=== PATIENT | female | born 2000 | race Caucasian/White ===

== ENCOUNTER 2020-01-06 09:48 | Outpatient (CLI) | payer MEDICAID, SELFPAY ==
--- NOTE | 2020-01-06 | US_ITS ---
WS: [id number] ULTRASOUND OB COMPLETE TECHNIQUE: Complete ultrasound. CLINICAL INFORMATION: SUPERVISION OF NORMAL FIRST PREGANCY IN FIRST TRIMESTER COMPARISON: None. FINDINGS: Cervix measures 3.7 cm Single interuterine gestation is identified with breech presentation. Placenta is anterior. Placenta grade 0. Normal amniotic fluid volume. cardiac activity: 143 BPM. AGA: 20 weeks 2 days MARIBEL by ultrasound: May 23, 2020 Estimated weight: 12 ounces BDP: 4.7 cm = 20w1d HC: 17.5 cm = 20w0d AC: 15.4 cm = 20w4d FEMUR LENGTH: 3.2 cm = 20w1d Anatomic survey: Anatomic survey is normal. Normal stomach. Kidneys and bladder are normal. Normal 3 vessel cord. Norm al 3 vessel cord insertion. Normal 4 chamber heart. Normal spine. Intracranial contents are normal. N ormal posterior fossa and cisterna magna. US/US OB >= 14 weeks fetus [id number] IMPRESSION: 1. Single intrauterine with visualized cardiac activity. AGA 20 week s 2 days with MARIBEL May 23, 2020. 2. Placenta is anterior. No evidence of abruption or previa. 3. anatomic survey is normal. 4. Normal amniotic fluid volume.
== END 2020-01-06 09:49 | disposition home or self-care (01) ==
LOC: RADOUTREAD 14:35
PROVIDERS: Visit Provider Family Medicine
DX: Z76.89 Persons encountering health services in other specified circumstances (principal)

== ENCOUNTER 2020-05-31 01:30 | Inpatient (IN) | payer MEDICAID, SELFPAY ==
[2020-05-31] VITALS (66 sets, daily range): BP systolic 0–159; BP diastolic 0–93; PULSE 54–105; RESP 16–20; TEMP 36.4–37.1; O2SAT 96–98
[2020-05-31] MEDS: lactated ringers 1,000 ML 125 ML IV (02:41)
[2020-05-31] MEDS: ampicillin 2,000 MG in sodium chloride 0.9% (plus) 50 ML 100 MG IV (02:42)
[2020-05-31 03:21] LABS: Basophils # 0.1 10^3/uL (0.0-0.1); Basophils % 0.4 %; Eosinophils # 0.2 10^3/uL (0.0-0.8); Eosinophils % 0.9 %; Hematocrit 37.9 % (37.0-47.0); Hemoglobin 12.5 g/dL (11.5-15.3); Lymphocytes # 3.2 10^3/uL (1.5-6.5); Lymphocytes % 20.2 %; Mean Corpuscular Hemoglobin 29.1 pg (28.0-34.0); Mean Corpuscular Volume 88.3 fL (81-99); Monocytes % 6.1 %; Neutrophils # 11.52 10^3/uL (1.8-8.0); Nucleated Red Blood Cells % 0 %; Platelet Count 229 10^3/cmm (130-400); Red Blood Count 4.29 10^6/uL (4.1-5.3); Red Cell Distribution Width 12.9 % (12.1-15.1)
[2020-05-31 03:31] LABS: Amphetamines Screen Urine Negative (Negative); Barbiturates Screen Urine Negative (Negative); Benzodiazepines Screen Urine Negative (Negative); Cocaine Screen Urine Negative (Negative); Opiate Screen Urine Negative (Negative); PCP Screen Urine Negative (Negative); THC Screen Urine Negative (Negative)
[2020-05-31] MEDS: ampicillin 1,000 MG in sodium chloride 0.9% (plus) 50 ML 100 MG IV ×2 (06:57→09:57)
[2020-05-31] MEDS: fentaNYL 50 mcg/mL INJ 2mL IV ×3 (07:38→11:26)
--- NOTE | 2020-05-31 10:09 | PC.NURSE ---
This nurse offered to assist patient into a different position to help progress labor and pain management. Patient declined and stated she did position changes this morning and she is tired. This nurse reiterated to hit call light if she thinks her water breaks or feeling the urge to push. Patient verbalized understanding. Denied needing anything.
[2020-05-31] MEDS: ondansetron 2 mg/ML SDV 2 mL 4 MG IVP (11:36)
--- NOTE | 2020-05-31 14:58 | P.PCNOB_ITS ---
Delivery Note: Date of delivery: May 31, 2020 Pre-Delivery Course: Mother had routine care at [facility]. She was known to be GBS positive and received several doses of ampicillin prior to delivery. There were no complications during the . Mother did test positive for THC during the . Delivery: This is a 19-year-old at 41 weeks gestation who presented to labor and delivery in active labor. Her labor progressed well on its own. She underwent artificial rupture of membranes with thin meconium when she was about 7 cm dilated. Mother was having some difficulty pushing past her tight tissues and heart tones were in the 80s so decision was made to assist with vacuum delivery. The vacuum popped off x1 and was not replaced. Midline episiotomy was performed. Shortly thereafter she had a vaginal delivery of a viable male infant weight 8 pounds 3 ounces, 3715 g over midline episiotomy. Placenta was delivered grossly intact and normal to inspection. Second-degree midline episiotomy was repaired using 3-0 chromic in a running fashion. Mother was doing well after delivery. Estimated blood loss 350 mL. was requiring a little bit of oxygen support. His Apgars were 7 and 8 and he had tachypnea and grunting. ROM was approximately 2 hours prior to delivery A&P Assessment and plan (1) Vacuum-assisted vaginal delivery: Routine care Status: Acute (2) 41 weeks gestation of : Status: Acute Coding Level of Care Code Acute Belt And Link Assembly Supervisor for Chg Fwd Diagnoses Vacuum-assisted vaginal delivery Z37.9 41 weeks gestation of Z3A.41
[2020-05-31] MEDS: oxytocin 30 UNIT/500 ML BAG 600 UNIT IV (15:01)
[2020-05-31] MEDS: lidocaine 2% INJ 20 mL INJECTION (15:02)
[2020-05-31] MEDS: benzocaine-menthol 78 gm Canister 1 SPRAY TOPICAL (17:10)
[2020-05-31] MEDS: lanolin oint 7 gm 1 APPLIC TOPICAL (17:11)
[2020-06-01 03:29] LABS: Hematocrit 31.3 % (37.0-47.0); Hemoglobin 10.1 g/dL (11.5-15.3); Mean Corpuscular HGB Conc 32.3 g/dL (30.0-36.0); Mean Corpuscular Hemoglobin 29.3 pg (28.0-34.0); Mean Corpuscular Volume 90.7 fL (81-99); Mean Platelet Volume 11.6 fL (7.4-10.4); Platelet Count 214 10^3/cmm (130-400); Red Blood Count 3.45 10^6/uL (4.1-5.3); Red Cell Distribution Width 12.8 % (12.1-15.1); White Blood Count 16.7 10^3/uL (4.5-13.0)
[2020-06-01] MEDS: prenatal vitamin Capsule 1 CAP PO (08:39)
[2020-06-01] MEDS: docusate sodium 100 mg Capsule PO ×2 (08:39→17:50)
[2020-06-01 10:28] VITALS: BP 109/66; PULSE 73; RESP 16; TEMP 36.8; O2SAT 98
--- NOTE | 2020-06-01 12:31 | P.PN_ITS ---
Subjective Subjective: Interval history: Mother is doing well. She states her bleeding is not bad. She has no concerns or complaints Vitals/I&O/Wt Last Vital Signs Temp 98.2 F 06/01/20 10:28 Pulse 73 06/01/20 10:28 Resp 16 06/01/20 10:28 BP 109/66 06/01/20 10:28 Pulse Ox 98 06/01/20 10:28 05/31/20 06/01/20 06/01/20 22:59 06:59 14:59 Intake Total 500 / 1483.333 Balance 500 / 1483.333 Weight last 48 hrs Weight 175 lb Physical Exam Const: COMMON NORMALS: no acute distress GENERAL APPEARANCE: cooperative and comfortable HENMT: COMMON NORMALS: normocephalic and atraumatic HEAD & SCALP: normoc ephalic and atraumatic Eye: COMMON NORMALS: Equal, round and reactive pupils present and EOMs intact bilaterally PUPIL: Yes Equal, round and reactive pupils present Chest: COMMONS NORMALS: normal inspection of the chest Resp: COMMON NORMALS: normal respiratory effort and No retractions Cardio: COMMON NORMALS: regular rate and regular rhythm RATE: regular rate RHYTHM: regular rhythm GI: COMMON NORMALS: Soft to palpation (Fundus firm U- 2) PALPATION: Yes Soft to palpation (Fundus firm U- 2), No Tenderness to palpation present (GI) and No Guarding due to palpation present (GI) Extremity: GENERAL: No calf tenderness and No edema Data : 06/01/20 03:05 A&P Assessment and plan (1) Vacuum-assisted vaginal delivery: Continue routine care and work on breast-feeding Status: Acute Attestations Medical Necessity Statement*: Routine care Coding Level of Care Code Acute Food Science Technician for Chg Fwd Diagnoses Vacuum-assisted vaginal delivery Z37.9
[2020-06-01 16:52] VITALS: BP 115/69; PULSE 64; RESP 16; TEMP 36.8; O2SAT 97
[2020-06-01 21:30] VITALS: BP 112/65; PULSE 75; RESP 16; O2SAT 98
[2020-06-02 04:00] VITALS: BP 111/65; PULSE 73; RESP 16
[2020-06-02] MEDS: docusate sodium 100 mg Capsule PO (09:05)
[2020-06-02] MEDS: prenatal vitamin Capsule 1 CAP PO (09:05)
[2020-06-02 10:03] VITALS: BP 113/65; PULSE 80; RESP 16; TEMP 36.8
--- NOTE | 2020-06-02 13:00 | P.DS_ITS ---
Discharge Providers STATISTICAL CLERK ADVERTISING Date of Admission: 05/31/20 01:30 Date of Discharge: 06/02/20 Attending Provider at Admission: Vickie Marquis MD Attending Provider at Discharge: Vickie Marquis MD Diagnoses at Discharge Discharge Diagnosis (1) Vacuum-assisted vaginal delivery: Status: Acute Reason for Visit Reason for Visit: abd pain Hospital Course Discharge Summary: This is a 19-year-old G1 now P1 who presented to labor and delivery in active labor. She had a vaginal delivery of a viable male . After delivery she did well. She had minimal vaginal bleeding, was ambulating, tolerating a regular diet, and requesting discharge home on day #2. Information Peripartum Data: Delivery Method: Vaginal Physical Exam Const: COMMON NORMALS: no acute distress, patient oriented x3 and alert GENERAL APPEARANCE: cooperative and comfortable HENMT: COMMON NORMALS: normocephalic and atraumatic HEAD & SCALP: normocephalic and atraumatic Chest: COMMONS NORMALS: normal inspection of the chest Resp: COMMON NORMALS: normal respiratory effort and No retractions Cardio: COMMON NORMALS: regular rate and regular rhythm RATE: regular rate RHYTHM: regular rhythm GI: COMMON NORMALS: Soft to palpation (Fundus firm U- 3) PALPATION: Yes Soft to palpation (Fundus firm U- 3), No Tenderness to palpation present (GI), No Guarding due to palpation present (GI) and No Rigid due to palpation Extremity: GENERAL: No calf tenderness and No edema Neuro: COMMON NORMALS: patient oriented x3 SENSORIUM/ORIENTATION: Yes alert Discharge Data Vitals: Last Vital Signs Temp 98.2 F 06/02/20 10:03 Pulse 80 06/02/20 10:03 Resp 16 06/02/20 10:03 BP 113/65 06/02/20 10:03 Pulse Ox 98 06/01/20 21:30 Discharge Plan Discharge Patient Disposition: Home Condition: Stable Prescriptions: No Action No Known Home Medications RF: 0 Discharge Orders: Discharge Order (Routine); Ordered 06/02/20 Ordered By: Vickie Marquis Referrals: Vickie Marquis MD [Physician] - 06/29/20 1:15 pm (* Your 4 week post appointment is with Dr. Marquis on June 29, 2020 at 1:15pm. ) Discharge Diet: Usual diet Discharge Activity: Limit activity as instructed Patient Instructions: OB Discharge Report, OB Food/Drug Interaction Guide, OB Home Care, OB Proud Parent Packet, OB Vaginal Deliveries Discharge Attestations STATISTICAL CLERK ADVERTISING Time Spent in Discharge Care*: less than 30 min Coding Level of Care Code Acute Conditioning Coach for Chg Fwd Diagnoses Vacuum-assisted vaginal delivery Z37.9
[2020-06-02 13:17] VITALS: BP 126/75; PULSE 87; RESP 18
[2020-06-02 13:29] VITALS: TEMP 36.9
== END 2020-06-02 13:57 | disposition home or self-care (01) | DRG 807 ==
LOC: OPOB 09:06 → OBGYN 09:06
PROVIDERS: Admitting Provider Family Medicine; Visit Provider Family Medicine
DX: O99.824 Streptococcus B carrier state complicating childbirth (principal); Z37.0 Single live birth; Z3A.41 41 weeks gestation of pregnancy; O99.324 Drug use complicating childbirth; F12.10 Cannabis abuse, uncomplicated; O70.1 Second degree perineal laceration during delivery
CPT/HCPCS: 12345; 36415; 59409; 80306; 85025; 85027; 96374; 96375; 98960; 99211; J0290; J2405; J3010

== ENCOUNTER → 2020-09-21 14:47 | Outpatient (BNVA) | payer MEDICAID, SELFPAY | PROVIDERS: Visit Provider Obstetrics & Gynecology | DX: Z30.9 Encounter for contraceptive management, unspecified (principal) | CPT/HCPCS: 81025 ==

== ENCOUNTER 2022-06-14 01:35 | Inpatient (IN) | payer MEDICAID, SELFPAY ==
[2022-06-13 18:58] VITALS: BMI 28.6
[2022-06-13 19:24] VITALS: BP 126/76; PULSE 95; TEMP 36.3
[2022-06-13] MEDS: miSOPROStol 100 mcg tablet 25 MCG VAGINAL (20:31)
[2022-06-13 20:32] LABS: Basophils % 0.2 %; Eosinophils # 0.1 10^3/uL (0.0-0.8); Eosinophils % 0.8 %; Hematocrit 34.5 % (37.0-47.0); Hemoglobin 11.2 g/dL (11.5-15.3); Lymphocytes # 3.3 10^3/uL (0.8-4.8); Lymphocytes % 22.5 %; Mean Corpuscular HGB Conc 32.5 g/dL (30.0-36.0); Mean Corpuscular Hemoglobin 28.1 pg (28.0-34.0); Mean Corpuscular Volume 86.5 fl (81-99); Mean Platelet Volume 11.8 fL (7.4-10.4); Monocytes # 0.7 10^3/uL (0.2-0.9); Monocytes % 4.9 %; Neutrophils # 10.25 10^3/uL (1.8-7.7); Neutrophils % 70.8 %; Nucleated Red Blood Cells % 0 %; Platelet Count 233 10^3/cmm (130-400); Red Blood Count 3.99 10^6/uL (4.1-5.3); Red Cell Distribution Width 14.9 % (12.1-15.1); White Blood Count 14.5 10^3/uL (4.0-10.0)
[2022-06-13 20:55] VITALS: BP 127/68; PULSE 93
[2022-06-13 21:10] VITALS: BP 129/71; PULSE 78
[2022-06-13 22:09] VITALS: BP 124/72; PULSE 81
[2022-06-13 23:14] VITALS: BP 125/79; PULSE 67
[2022-06-14] VITALS (30 sets, daily range): BP systolic 104–165; BP diastolic 56–88; PULSE 50–109; RESP 15–18; TEMP 36.4–36.8; O2SAT 99–100
[2022-06-14] MEDS: miSOPROStol 100 mcg tablet 25 MCG VAGINAL (00:40)
[2022-06-14 00:50] LABS: Amphetamines Screen Urine Negative (Negative); Barbiturates Screen Urine Negative (Negative); Benzodiazepines Screen Urine Negative (Negative); Cocaine Screen Urine Negative (Negative); Opiate Screen Urine Negative (Negative); PCP Screen Urine Negative (Negative); THC Screen Urine Positive (Negative)
[2022-06-14] MEDS: ondansetron 2 mg/ML SDV 2 mL 4 MG IVP (06:06)
[2022-06-14] MEDS: fentaNYL 50 mcg/mL INJ 2mL IVP ×2 (06:08→09:18)
[2022-06-14] MEDS: oxytocin 30 UNIT/500 ML BAG 600 UNIT IV (09:06)
--- NOTE | 2022-06-14 09:17 | PM.OPHPUD ---
Labor & Delivery H&P Update Date of Procedure: June 14, 2022 Date H&P Performed: 06/13/22 Admission Diagnosis: 1-year-old 2 para 1-0-0-1 at 40 weeks and 4 days presenting for induction Planned procedure: Spontaneous vaginal delivery Other information: The patient is a 21-year-old female whose is been remarkable for having inadequate care for the last month, and being positive for marijuana. The remainder of her labs within normal limits. Her blood type is a positive. She also failed a glucose screen but we had a hard time getting her in for further evaluation. Related Problem List Diagnoses (1) 41 weeks gestation of : A&P Assessment and plan (1) 41 weeks gestation of : I anticipate routine labor and delivery. We will initiate Cytotec and continue with further induction measures as needed. Status: Acute
--- NOTE | 2022-06-14 09:21 | PM.DELIVERY ---
Delivery Note: Date of delivery: June 14, 2022 Pre-delivery diagnoses: 21-year-old 2 para 1-0-0-1 female at 40 weeks and 4 days Post-delivery diagnoses: Status post vaginal delivery Procedure: 1. Spontaneous vaginal delivery 2. Manual extraction of retained placenta Delivering Physician: García Hayes Estimated blood loss (mL): 300 Delivery: DELIVERY: The patient progressed to complete without difficulty. She delivered a male with a weight of 6 pounds 7 ounces with Apgars of 8, 9. The baby was delivered from the CATE position and placed on the mother's abdomen. The cord was then clamped and cut. There was no nuchal cord. There was no meconium. The umbilical cord detached from the placenta. The patient continued to have moderate bleeding, so I manually extracted at the placenta intact. I manually explored the uterus after extraction of the placenta and found no residual placental material. The perineum and vaginal vault were carefully examined. No lacerations were noted. Both the mother and the baby were in stable condition. Post-Delivery Status: Good History History History 1 Term 1 0 Miscarriages/Ectopic 0 Living Children 1 A&P Assessment and plan (1) 40 weeks gestation of : Status: Acute (2) Spontaneous vaginal delivery: I anticipate routine care. Because of the manual removal of her placenta, we will monitor her for increased bleeding. I carefully examined the placenta afterwards and found no sign of any missing portions of the placenta, so I am hopeful that there will to be no problems. Status: Acute Coding Level of Care Code Acute Institution Librarian for Chg Fwd Diagnoses 40 weeks gestation of Z3A.40 Spontaneous vaginal delivery O80
[2022-06-14] MEDS: ibuprofen 800 mg tablet PO ×2 (16:07→21:08)
[2022-06-14] MEDS: docusate sodium 100 mg Capsule PO (21:08)
[2022-06-15 00:08] LABS: Hematocrit 31.1 % (37.0-47.0); Hemoglobin 10.2 g/dL (11.5-15.3); Mean Corpuscular HGB Conc 32.8 g/dL (30.0-36.0); Mean Corpuscular Volume 85.4 fl (81-99); Mean Platelet Volume 11.8 fL (7.4-10.4); Platelet Count 225 10^3/cmm (130-400); Red Blood Count 3.64 10^6/uL (4.1-5.3); Red Cell Distribution Width 14.6 % (12.1-15.1)
[2022-06-15 04:06] VITALS: BP 102/65; PULSE 55; RESP 17; TEMP 36.7; O2SAT 97
--- NOTE | 2022-06-15 04:07 | PC.NURSE ---
upon entering room mom had baby in bed with her with her blanket covering his head. I woke mom up and put baby in the bassinet beside the bed next to mom. I educated mom on safe sleep practices including baby should be in the bassinet if mom is sleeping and she verbalized understanding.
--- NOTE | 2022-06-15 06:43 | P.DS_ITS ---
Discharge Providers COMPUTATIONAL PHYSICIST Date of Admission: 06/14/22 01:35 Date of Discharge: 06/17/22 Attending Provider at Admission: García Hayes MD Attending Provider at Discharge: García Hayes MD Diagnoses at Discharge Discharge Diagnosis (1) 40 weeks gestation of : Status: Resolved (2) Spontaneous vaginal delivery: Status: Resolved Reason for Visit Reason for Visit: Induction Hospital Course Hospital Course The patient is a 41-week female who presented to the hospital for induction. She was placed on Cytotec. An amniotomy was performed. She progressed to complete and had an unremarkable delivery of a healthy-appearing male infant. Unfortunately, the umbilical cord disconnected from the placenta prior to delivery of the placenta. As result, the placenta had to be manually extracted. Thankfully, the placenta was able to be extracted intact. The patient's course was unremarkable. Her bleeding was within normal limits. Her pain was well controlled. There were no concerns. Information Peripartum Data: Infant Delivery Method: Vaginal Physical Exam Narrative: The patient is alert. She appears comfortable. Her heart has a regular rate and rhythm with no murmurs appreciated. Lungs are clear to auscultation bilaterally. Her fundus is firm and below the umbilicus. History History History 1 Term 1 0 Miscarriages/Ectopic 0 Living Children 1 Discharge Data Studies Completed and Pending Laboratory Results WBC 14.0 10^3/uL (4.0-10.0) H 06/14/22 23:15 RBC 3.64 10^6/uL (4.1-5.3) L 06/14/22 23:15 Hgb 10.2 g/dL (11.5-15.3) L 06/14/22 23:15 Hct 31.1 % (37.0-47.0) L 06/14/22 23:15 MCV 85.4 fl (81-99) 06/14/22 23:15 MCH 28.0 pg (28.0-34.0) 06/14/22 23:15 MCHC 32.8 g/dL (30.0-36.0) 06/14/22 23:15 RDW 14.6 % (12.1-15.1) 06/14/22 23:15 Plt Count 225 10^3/cmm (130-400) 06/14/22 23:15 MPV 11.8 fL (7.4-10.4) H 06/14/22 23:15 Neut % (Auto) 70.8 % 06/13/22 19:25 Lymph % (Auto) 22.5 % 06/13/22 19:25 [place] % (Auto) 4.9 % 06/13/22 19:25 Eos % (Auto) 0.8 % 06/13/22 19:25 Baso % (Auto) 0.2 % 06/13/22 19:25 Neut # (Auto) 10.25 10^3/uL (1.8-7.7) H 06/13/22 19:25 Lymph # (Auto) 3.3 10^3/uL (0.8-4.8) 06/13/22 19:25 [place] # (Auto) 0.7 10^3/uL (0.2-0.9) 06/13/22 19:25 Eos # (Auto) 0.1 10^3/uL (0.0-0.8) 06/13/22 19:25 Baso # (Auto) 0.0 10^3/uL (0.0-0.1) 06/13/22 19:25 Nucleated RBC % (auto) 0 % 06/13/22 19:25 Nucleated RBCs # 0.0 /100WBC 06/13/22 19:25 Urine Opiates Screen Negative ng/mL (Negative) 06/14/22 00:05 Ur Barbiturates Screen Negative ng/mL (Negative) 06/14/22 00:05 Ur Phencyclidine Scrn Negative ng/mL (Negative) 06/14/22 00:05 Ur Amphetamines Screen Negative ng/mL (Negative) 06/14/22 00:05 U Benzodiazepines Scrn Negative ng/mL (Negative) 06/14/22 00:05 Urine Cocaine Screen Negative ng/mL (Negative) 06/14/22 00:05 U Marijuana (THC) Screen Positive ng/mL (Negative) H 06/14/22 00:05 Vitals Last Vital Signs Temp 98.0 F 06/15/22 04:06 Pulse 55 L 06/15/22 04:06 Resp 17 06/15/22 04:06 BP 102/65 06/15/22 04:06 Pulse Ox 97 06/15/22 04:06 O2 Del Method 06/15/22 04:06 Discharge Plan Discharge Patient Disposition: Home Condition: Stable Prescriptions: New ibuprofen 800 mg Tablet 800 mg PO TID Qty: 45 0RF -U 106.5-1 mg Capsule 1 cap PO DAILY Qty: 100 1RF Discontinued Xulane 150-35 mcg/24 hr patch weekly 1 patch transdermal Q7D 28 Days Qty: 3 12RF Rx Instructions: apply a new patch weekly for 3 weeks, leave patch off for one week, repeat each month Discharge Orders: Discharge Order (Routine); Ordered 06/15/22 Ordered By: García Hayes Referrals: García Hayes MD [Physician] - 07/26/22 1:30 pm Discharge Diet: Usual diet Discharge Activity: Limit activity as instructed Patient Instructions: Ibuprofen (By mouth) (Advil, Advil Children's, Motrin, Children's..., Depression (DC), Expression, Collection and Storage of Breast Milk (DC), and Nipple Soreness (DC), and Breast Engorgement (DC), and Plugged Ducts (DC), How to Increase Your Milk Supply (DC), How to Tell if Your Baby is Getting Enough Breast Milk (DC), Effects of Smoking, Alcohol, and Medicines on (DC), Breast Care for the Mother (DC), OB Discharge Report, OB Care at Home, Opioid Safety, Abnormal Bleeding Discharge Attestations COMPUTATIONAL PHYSICIST Time Spent in Discharge Care*: less than 30 min Coding Level of Care Code Acute Company Marker for Chg Fwd Diagnoses 40 weeks gestation of Z3A.40 Spontaneous vaginal delivery O80
[2022-06-15] MEDS: docusate sodium 100 mg Capsule PO (09:12)
[2022-06-15] MEDS: ibuprofen 800 mg tablet PO (09:12)
[2022-06-15] MEDS: prenatal vitamin Capsule 1 CAP PO (09:12)
[2022-06-15 09:15] VITALS: BP 121/62; PULSE 56; RESP 18; TEMP 36.7; O2SAT 99
[2022-06-15 11:15] VITALS: BP 126/85; PULSE 67; RESP 18; TEMP 36.6; O2SAT 98
== END 2022-06-15 11:24 | disposition home or self-care (01) | DRG 806 ==
LOC: OPOB 01:35 → OBGYN 01:35
PROVIDERS: Admitting Provider Family Medicine; Visit Provider Family Medicine
DX: O48.0 Post-term pregnancy (principal); O99.324 Drug use complicating childbirth; Z37.0 Single live birth; F12.90 Cannabis use, unspecified, uncomplicated; O73.0 Retained placenta without hemorrhage; Z3A.40 40 weeks gestation of pregnancy
CPT/HCPCS: 12345; 36415; 59409; 80306; 85025; 85027; J2405; J3010

== ENCOUNTER 2025-05-31 19:03 | Outpatient (CLI) | payer MEDICAID, SELFPAY ==
[2025-05-31 19:12] VITALS: BP 133/74; PULSE 80
[2025-05-31 19:18] VITALS: BMI 26.4
[2025-05-31 19:27] VITALS: BP 113/67; PULSE 94
[2025-05-31 19:42] VITALS: BP 121/66; PULSE 81
[2025-05-31 19:57] VITALS: BP 118/62; PULSE 75
[2025-05-31 20:31] VITALS: BP 118/62; PULSE 75; RESP 16; TEMP 36.7; O2SAT 98
== END 2025-05-31 20:30 | disposition home or self-care (01) ==
LOC: OPOB 19:06 → OBGYN 19:07
PROVIDERS: Visit Provider Family Medicine
DX: O99.810 Abnormal glucose complicating pregnancy (principal); Z3A.00 Weeks of gestation of pregnancy not specified; R42 Dizziness and giddiness
CPT/HCPCS: 36416; 59025; 82962; 99211

== ENCOUNTER 2025-08-13 04:41 | Inpatient (IN) | payer MEDICAID, SELFPAY ==
[2025-08-13] VITALS (35 sets, daily range): BP systolic 103–142; BP diastolic 58–101; PULSE 57–115; RESP 16–17; TEMP 35.1–36.8; O2SAT 98; BMI 27.8
[2025-08-13 04:45] LABS: Hematocrit 35.3 % (36-47); Hemoglobin 12.00 g/dL (11.27-16.99); Mean Corpuscular HGB Conc 34.0 g/dL (30-55); Mean Corpuscular Hemoglobin 30.1 pg (27-33); Mean Corpuscular Volume 88.5 fl (85-98); Nucleated Red Blood Cells % 0 %; Platelet Count 246 10^3/cmm (157-399); Red Blood Count 3.99 10^6/uL (3.85-5.65); White Blood Count 17.60 10^3/uL (3.29-11.43)
[2025-08-13 05:56] LABS: PCP Screen Urine Negative (Negative)
--- NOTE | 2025-08-13 08:26 | PM.OBGYHP ---
Providers/Chief Complaint Admitting Physician: Dallin Fernandes MD Chief Complaint: contractions 0000 HPI RESIDENT INSPECTOR History of Present Illness Anum Childs is a 25 year old G3, P2 female that presented at 39 weeks 3 days with contractions. The patient was found to be Avanza dilated to 5 cm and was ely regularly. Patient has a history of gestational diabetes has been well-managed with diet and metformin. No other complications during this . Present Details : 3 Para: 2 Labs Rubella: Immune RPR: Negative GBS: Negative Review of Systems General: Reports: 10 or more systems reviewed and unremarkable except in HPI and below Const: Denies: fever(s) or chills ENMT: Denies: throat pain Card: Denies: chest pain Resp: Denies: dyspnea, productive cough or non-productive cough GI: Reports: abdominal pain Medications/Allergies Home Medications ?Medication ?Instructions ?Recorded ?Confirmed ?Last Taken ?Type multivitamin no.51-ferrous 1 cap PO DAILY #100 caps 06/15/22 08/13/25 Unknown Rx fumarate 106.5 mg-folic acid 1 mg capsule (-U) Allergies Allergy/AdvReac Type Severity Reaction Status Date / Time No Known Allergies Allergy Verified 08/13/25 04:45 PFSH RESIDENT INSPECTOR PFSH: Family History Mother Diabetes Grandmother Diabetes maternal Grandfather Diabetes maternal Sister Diabetes Family/Other Thyroid disease paternal aunt Denies family history of Colon cancer Ovarian cancer Clotting disorder Heart disease Hyperlipidemia Breast cancer Anesthesia complication Bleeding disorder Hypertension Uterine cancer Stroke Social History Smoking and tobacco/nicotine status: current every day tobacco/nicotine user cigarettes Packs smoked per day: 0.5 Alcohol intake: never Substance/Drug Use: never Other Female Reproductive History: Hx Age of Menarche: 13 Duration of menses: 6-7 days Cycle Length: irregular Menstrual flow: normal/abnormal: normal History History History 1 Term 1 0 Miscarriages/Ectopic 0 Living Children 1 Vitals/I&O/Wt Last Vital Signs Temp 96.3 F L 08/13/25 07:55 Pulse 77 08/13/25 08:20 Resp 17 08/13/25 07:55 BP 129/68 08/13/25 08:20 O2 Del Method Room Air 08/13/25 04:33 Weight last 48 hrs Weight 73.482 kg Physical Exam Const: COMMON NORMALS: no acute distress, average body habitus and patient oriented x3 Resp: COMMON NORMALS: normal respiratory effort and No retractions Cardio: COMMON NORMALS: no JVD, regular rate and regular rhythm GI: OTHER: Gravid uterus Extremity: COMMON NORMALS: normal to inspection and no clubbing, cyanosis or edema Neuro: COMMON NORMALS: patient oriented x3, moves all extremities, no focal motor deficits and no sensory deficits noted Psych: COMMON NORMALS: mental status grossly normal and cooperative Data 08/13/25 04:35 Results Labs OB ([facility]): Blood Type A Positive Today Antibody Screen Negative Today Hct, (36-47) 35.3 % L Today Hgb, (11.27-16.99) 12.00 g/dL Today Rho(D) Type Rh positive Today Plt Count, (157-399) 246 10^3/cmm Today Urine Opiates Screen, (Negative) Negative ng/mL Today Ur Barbiturates Screen, (Negative) Negative ng/mL Today Ur Phencyclidine Scrn, (Negative) Negative ng/mL Today Ur Amphetamines Screen, (Negative) Negative ng/mL Today U Benzodiazepines Scrn, (Negative) Negative ng/mL Today Urine Cocaine Screen, (Negative) Negative ng/mL Today U Marijuana (THC) Screen, (Negative) Positive ng/mL H Today A&P Assessment and plan 1. Term , repeat: Continue with routine labor management. 2. 39 weeks gestation of : 3. Gestational diabetes mellitus (GDM) affecting : Monitor blood sugars as needed. PDMP PDMP Reviewed: Not Reviewed Attestations Medical Necessity Statement*: Patient admitted for labor. Anticipate at least 1 midnight stay. Coding Level of Care Code Acute Code for Chg Fwd Diagnoses Term , repeat Z34.90 39 weeks gestation of Z3A.39 Gestational diabetes mellitus (GDM) affecting O24.419
[2025-08-13] MEDS: oxytocin 30 UNIT/500 ML BAG 600 UNIT IV (09:59)
[2025-08-13] MEDS: benzocaine-menthol 78 gm Canister 1 SPRAY TOPICAL (10:59)
--- NOTE | 2025-08-13 12:39 | PM.DELIVERY ---
Delivery Note: Date of delivery: August 13, 2025 Pre-delivery diagnoses: Term Post-delivery diagnoses: Same, viable female Procedure: Spontaneous vaginal delivery Delivering Physician: Dr. Luis Alberto Fernandes Estimated blood loss (mL): 150 Pre-Delivery Course: This is a 25-year-old G3, P3 that presented at 39 weeks 3 days in active labor. Patient progressed to 7 cm and bulging bag was noted. This was artificially ruptured and then the patient proceeded to progress to completion as expected. Delivery: Once patient was completely dilated the patient was placed into the normal lithotomy position and started pushing with contractions and delivered a viable infant female vaginally without difficulty. Infant was placed onto mother's abdomen. After delay the cord was clamped and cut. Placenta was then delivered soon after. Review of the perineum did not demonstrate any significant tears that required repair. Patient's bleeding was managed. Uterus was firm and mom was stable. History History History 1 Term 1 0 Miscarriages/Ectopic 0 Living Children 1 A&P Assessment and plan 1. Normal spontaneous vaginal delivery: Proceed with routine care PDMP PDMP Reviewed: Not Reviewed Coding Level of Care Code Acute Code for Chg Fwd Diagnoses Normal spontaneous vaginal delivery O80
[2025-08-13 22:50] LABS: Hematocrit 34.3 % (36-47); Hemoglobin 11.80 g/dL (11.27-16.99); Mean Corpuscular HGB Conc 34.4 g/dL (30-55); Mean Corpuscular Hemoglobin 30.6 pg (27-33); Mean Corpuscular Volume 88.9 fl (85-98); Platelet Count 230 10^3/cmm (157-399); Red Blood Count 3.86 10^6/uL (3.85-5.65); White Blood Count 14.12 10^3/uL (3.29-11.43)
[2025-08-14] MEDS: PRENATAL VIT NO.130/IRON/FOLIC 1 EACH TABLET PO (05:06)
[2025-08-14 05:08] VITALS: BP 123/75; PULSE 75; RESP 16; TEMP 36.5
--- NOTE | 2025-08-14 07:35 | PM.OBGYDC ---
Discharge Providers [employer] Date of Admission: 08/13/25 04:41 Date of Discharge: 08/14/25 Attending Provider at Admission: Dallin Fernandes MD Attending Provider at Discharge: Dallin Fernandes MD Diagnoses at Discharge Discharge Diagnosis 1. Normal spontaneous vaginal delivery: Reason for Visit Reason for Visit: contractions 0000 Hospital Course Hospital Course This is a 25-year-old G3, P3 that presented with tractions. The patient had delivered a viable infant female vaginally without complication. Patient has had unremarkable care. Vital signs have been stable and lochia has been appropriate. Information Peripartum Data: Infant Delivery Method: Vaginal Laceration description: None complications: none Physical Exam Const: COMMON NORMALS: no acute distress, average body habitus and patient oriented x3 Neck/C-Spine: COMMON NORMALS: no JVD Resp: COMMON NORMALS: normal respiratory effort and No retractions Cardio: COMMON NORMALS: no JVD, regular rate and regular rhythm RATE: regular rate RHYTHM: regular rhythm GI: OTHER: Uterus firm and below umbilicus Extremity: COMMON NORMALS: normal to inspection and no clubbing, cyanosis or edema Neuro: COMMON NORMALS: patient oriented x3, moves all extremities, no focal motor deficits and no sensory deficits noted Psych: COMMON NORMALS: mental status grossly normal and cooperative History History History 1 Term 1 0 Miscarriages/Ectopic 0 Living Children 1 Discharge Data Studies Completed and Pending Pending at discharge Category Date Time Status Retype for Patiets ABO/Rh Routine Lab 08/13/25 22:40 Received Laboratory Results WBC 14.12 10^3/uL (3.29-11.43) H 08/13/25 22:40 RBC 3.86 10^6/uL (3.85-5.65) 08/13/25 22:40 Hgb 11.80 g/dL (11.27-16.99) 08/13/25 22:40 Hct 34.3 % (36-47) L 08/13/25 22:40 MCV 88.9 fl (85-98) 08/13/25 22:40 MCH 30.6 pg (27-33) 08/13/25 22:40 MCHC 34.4 g/dL (30-55) 08/13/25 22:40 RDW 12.9 % (12.1-15.1) 08/13/25 22:40 Plt Count 230 10^3/cmm (157-399) 08/13/25 22:40 MPV 10.6 fL (7.4-10.4) H 08/13/25 22:40 Neut % (Auto) 78.9 % 08/13/25 04:35 Lymph % (Auto) 13.1 % 08/13/25 04:35 [place] % (Auto) 6.1 % 08/13/25 04:35 Eos % (Auto) 0.9 % 08/13/25 04:35 Baso % (Auto) 0.3 % 08/13/25 04:35 Neut # (Auto) 13.87 10^3/uL (1.8-7.7) H 08/13/25 04:35 Lymph # (Auto) 2.3 10^3/uL (0.8-4.8) 08/13/25 04:35 [place] # (Auto) 1.1 10^3/uL (0.2-0.9) H 08/13/25 04:35 Eos # (Auto) 0.2 10^3/uL (0.0-0.8) 08/13/25 04:35 Baso # (Auto) 0.1 10^3/uL (0.0-0.1) 08/13/25 04:35 Nucleated RBC % (auto) 0 % 08/13/25 04:35 Nucleated RBCs # 0.0 /100WBC 08/13/25 04:35 Urine Opiates Screen Negative ng/mL (Negative) 08/13/25 04:09 Ur Barbiturates Screen Negative ng/mL (Negative) 08/13/25 04:09 Ur Phencyclidine Scrn Negative ng/mL (Negative) 08/13/25 04:09 Ur Amphetamines Screen Negative ng/mL (Negative) 08/13/25 04:09 U Benzodiazepines Scrn Negative ng/mL (Negative) 08/13/25 04:09 Urine Cocaine Screen Negative ng/mL (Negative) 08/13/25 04:09 U Marijuana (THC) Screen Positive ng/mL (Negative) H 08/13/25 04:09 Blood Type A Positive 08/13/25 04:35 Rho(D) Type Rh positive 08/13/25 04:35 Antibody Screen Negative 08/13/25 04:35 Vitals Last Vital Signs Temp 97.7 F 08/14/25 05:08 Pulse 75 08/14/25 05:08 Resp 16 08/14/25 05:08 BP 123/75 08/14/25 05:08 Pulse Ox 98 08/13/25 21:18 O2 Del Method Room Air 08/13/25 21:18 Results Labs OB ([facility]): Blood Type A Positive 08/13/25 Antibody Screen Negative 08/13/25 Hct, (36-47) 34.3 % L 08/13/25 Hgb, (11.27-16.99) 11.80 g/dL 08/13/25 Rho(D) Type Rh positive 08/13/25 Plt Count, (157-399) 230 10^3/cmm 08/13/25 Urine Opiates Screen, (Negative) Negative ng/mL 08/13/25 Ur Barbiturates Screen, (Negative) Negative ng/mL 08/13/25 Ur Phencyclidine Scrn, (Negative) Negative ng/mL 08/13/25 Ur Amphetamines Screen, (Negative) Negative ng/mL 08/13/25 U Benzodiazepines Scrn, (Negative) Negative ng/mL 08/13/25 Urine Cocaine Screen, (Negative) Negative ng/mL 08/13/25 U Marijuana (THC) Screen, (Negative) Positive ng/mL H 08/13/25 Discharge Plan Discharge Patient Disposition: Home Condition: Stable Prescriptions: Continued -U 106.5-1 mg Capsule 1 cap PO DAILY Qty: 100 1RF Discharge Order = DC NOW: Discharge Order (Routine); Ordered 08/14/25 Ordered By: Dallin Fernandes Referrals: Dallin Fernandes MD [Physician, Family Practice] - 6 Weeks Discharge Diet: Usual diet Discharge Activity: Limit activity as instructed Patient Instructions: Opioid Safety, Patient Portal & Patel Instructions Discharge Attestations [employer] Time Spent in Discharge Care*: less than 30 min Coding Level of Care Code Acute Code for Chg Fwd Diagnoses Normal spontaneous vaginal delivery O80
[2025-08-14 10:34] VITALS: BP 117/74; PULSE 80; RESP 16; TEMP 36.8
[2025-08-14 13:52] VITALS: BP 128/81; PULSE 71; RESP 17; O2SAT 98
== END 2025-08-14 13:52 | disposition home or self-care (01) | DRG 998 ==
LOC: OPOB 04:42 → OBGYN 04:42
PROVIDERS: Admitting Provider Family Medicine; Visit Provider Family Medicine
DX: O24.425 Gestational diabetes mellitus in childbirth, controlled by oral hypoglycemic drugs (principal); O99.334 Smoking (tobacco) complicating childbirth; F17.210 Nicotine dependence, cigarettes, uncomplicated; Z3A.39 39 weeks gestation of pregnancy; Z83.3 Family history of diabetes mellitus
CPT/HCPCS: 36415; 59025; 59409; 80306; 85025; 85027; 86850; 86900; 99211; J2590; J7121; J9999